=== PATIENT | male | born 2000 | race Caucasian/White ===

== ENCOUNTER 2020-12-13 15:48 | Emergency (ER) | payer BC ==
[~2020-12-13] VITALS: Ht 167.6 cm; Wt 72.7 kg
[2020-12-13 15:53] VITALS: TEMP 98.1
[2020-12-13 16:43] VITALS: BP 131/71; PULSE 80
== END 2020-12-13 16:44 | disposition home or self-care (01) ==
LOC: COL.ER 15:48
DX: S01.81XA Laceration without foreign body of other part of head, initial encounter (principal); V29.40XA Motorcycle driver injured in collision with unspecified motor vehicles in traffic accident, initial encounter; Y93.55 Activity, bike riding